=== PATIENT | male | born 1980 | race Caucasian/White ===

== ENCOUNTER 2019-03-24 19:19 | Emergency (ER) | payer MEDICAID ==
[~2019-03-24] VITALS: Ht 180.3 cm; Wt 145.0 kg
[2019-03-24 19:31] VITALS: BP 173/107
[2019-03-24] MEDS ORDERED: HYDR28CR14 TOP (21:15)
[2019-03-24] MEDS ORDERED: TRIA15CR61 TOP (22:50)
== END 2019-03-24 23:38 | disposition home or self-care (01) ==
LOC: ER 19:22
DX: S40.862A Insect bite (nonvenomous) of left upper arm, initial encounter (principal); S40.861A Insect bite (nonvenomous) of right upper arm, initial encounter; S30.861A Insect bite (nonvenomous) of abdominal wall, initial encounter; S80.862A Insect bite (nonvenomous), left lower leg, initial encounter; S80.861A Insect bite (nonvenomous), right lower leg, initial encounter; Z88.6 Allergy status to analgesic agent; Z88.5 Allergy status to narcotic agent; W57.XXXA Bitten or stung by nonvenomous insect and other nonvenomous arthropods, initial encounter; Y93.89 Activity, other specified; Y92.89 Other specified places as the place of occurrence of the external cause; Y99.9 Unspecified external cause status
CPT/HCPCS: 99282; 99283

== ENCOUNTER 2020-03-09 20:16 | Emergency (ER) | payer MEDICAID ==
[~2020-03-09] VITALS: Ht 190.5 cm; Wt 179.0 kg
[~2020-03-09 20:16] MED LIST: HYDR28CR14 TOP
[2020-03-09 20:30] VITALS: BP 184/100
== END 2020-03-09 21:24 | disposition left against medical advice (07) ==
LOC: ER 20:16
DX: M54.9 Dorsalgia, unspecified (principal); Z53.21 Procedure and treatment not carried out due to patient leaving prior to being seen by health care provider